=== PATIENT | male | born 1975 | race Hispanic/Latino ===

== ENCOUNTER 2020-09-11 11:33 | Emergency (ER) | payer OTHER ==
[~2020-09-11] VITALS: Ht 182.9 cm; Wt 153.3 kg
[2020-09-11] MEDS ORDERED: ZITHROMAX250 MG PO (12:53)
[2020-09-11 13:03] VITALS: BP 130/86
== END 2020-09-11 13:10 | disposition home or self-care (01) ==
LOC: FSED 11:42
DX: U07.1 COVID-19 (principal); J18.9 Pneumonia, unspecified organism
CPT/HCPCS: 71046; 99283